=== PATIENT | female | born 1990 | race Caucasian/White ===

== ENCOUNTER 2019-09-08 20:29 | Emergency (ER) | payer OTHER, SELFPAY ==
--- NOTE | 2019-09-08 20:41 | ED.DENTAL ---
HPI - Dental/Oral General Chief complaint: Dental/Oral Stated complaint: TOOTH PAIN Source: patient Mode of arrival: ambulatory Limitations: no limitations History of Present Illness HPI Narrative: 29-year-old female presents with a canker sore located on the the bottom right molar to gum area painful with some no dental pain no submandibular gland swelling no fever chills no shortness of breath. Onset (ago): day(s) Duration: constant Severity: moderate Severity scale (1-10): 8 Relieving factors: NSAIDs Exacerbating factors: chewing Context: history of dental caries Associated symptoms: pain with swallowing Treatment prior to arrival: oral analgesic Related Data Allergies Allergy/AdvReac Type Severity Reaction Status Date / Time No Known Allergies Allergy Mild Unverified 06/25/12 07:53 Review of Systems Review of Systems: All systems reviewed & are unremarkable except as noted in HPI and below PMFSH Past Medical History Medical History Classic migraine SABAS (generalized anxiety disorder) Klippel-Feil syndrome T3-T4 Fusion Anomoly Morbidly obese Nicotine dependence Surgical History Surgical History History of tonsillectomy (~2010) Social History Social History Smoking packs per day: 1 Smoking cigarettes per day: 20.0 Smoking status: Current every day smoker Tobacco type: cigarettes Exam Const: General: no acute distress and alert Orientation/consciousness: patient oriented x3 Limitations: altered mental status HENMT: Head: normal to inspection Other: Canker sore located right lower gum area Neck: Neck: normal visual inspection and no lymphadenopathy Chest: Chest palpation & inspection: normal inspection of the chest Resp: Effort & Inspection: normal respiratory effort Auscultation: clear to auscultation bilaterally Cardio: Rate: regular rate Rhythm: regular rhythm GI: Auscultation: normal bowel sounds Back/Spine/Pelvis: Back: no CVA tenderness Skin: General skin exam: normal color Neuro: General: patient oriented x3, moves all extremities and no meningeal signs Extrem: General: normal to inspection Critical Care Time Critical Care Time Critical Care Time: No Discharge Plan Discharge Clinical Impression: Aphthous ulcer Patient Disposition: Home, Self-Care Condition: Stable Instructions: Antibiotic Form, Canker Sores (ED) Prescriptions: New Orabase (benzocaine) 20 % paste 1 applic MUCOUS MEM QID MDD dispense x one week PRN (Reason: mouth irritation) Qty: 571.2 RF: 0 Follow-up/Referrals: UNKNOWN,DOCTOR [Primary Care Provider] - Stand Alone Forms: Work/School Release IP Time of Disposition: 20:48
[2019-09-08 20:43] VITALS: BP 114/82; RESP 16; TEMP 37; O2SAT 96
== END 2019-09-08 20:57 | disposition home or self-care (01) ==
PROVIDERS: Emergency Provider Emergency Medicine
DX: K12.0 Recurrent oral aphthae (principal)
CPT/HCPCS: 99283

== ENCOUNTER 2021-01-06 11:35 | Outpatient (CLI) | payer OTHER, SELFPAY ==
[2021-01-06 12:49] LABS: SARS-CoV-2 RNA PCR Negative (Negative)
== END 2021-01-06 11:36 | disposition home or self-care (01) ==
LOC: CHSLAB 11:38
PROVIDERS: PCP Family Medicine; Visit Provider Family Medicine
DX: R05 Cough (principal); Z20.822 Contact with and (suspected) exposure to COVID-19
CPT/HCPCS: C9803; U0003; U0005

== ENCOUNTER 2021-01-12 09:44 | Outpatient (CLI) | payer OTHER, SELFPAY ==
--- NOTE | ~2021-01-12 | XR_ITS ---
EXAMINATION: XR chest 2V DATE: 01/12/2021 10:04 INDICATION: Shortness of breath and cough. TECHNIQUE: Frontal and lateral views of the chest were obtained. COMPARISON: Chest 2 views 08/04/2018, CT abdomen and pelvis 09/14/2016 FINDINGS: The chest demonstrates clear lungs without pneumonia, pleural effusion, or pneumothorax. Th e heart size is normal. IMPRESSION: 1. No acute cardiopulmonary disease. Reviewed, dictated and finalized at location A.
[2021-01-12 10:46] LABS: SARS-CoV-2 RNA PCR Positive (Negative)
== END 2021-01-12 09:45 | disposition home or self-care (01) ==
LOC: CHSLAB 09:45
PROVIDERS: PCP Family Medicine; Visit Provider Nurse Practitioner Family
DX: U07.1 COVID-19 (principal); R06.02 Shortness of breath
CPT/HCPCS: 71046; C9803; U0003; U0005

== ENCOUNTER 2021-01-17 14:39 | Outpatient (CLI) | payer OTHER, SELFPAY ==
--- NOTE | ~2021-01-17 | XR_ITS ---
EXAMINATION: XR chest 2V DATE: 01/17/2021 15:13 INDICATION: Shortness of breath and cough. COVID-19 positive. TECHNIQUE: Frontal and lateral views of the chest were obtained. COMPARISON: Chest 2 views 01/12/2021 FINDINGS: The chest demonstrates clear lungs without pneumonia, pleural effusion, or pneumothorax. Th e heart size is normal. IMPRESSION: 1. No acute cardiopulmonary disease. Reviewed, dictated and finalized at location A.
== END 2021-01-17 14:40 | disposition home or self-care (01) ==
LOC: CHSIMG 14:41
PROVIDERS: PCP Nurse Practitioner Family; Visit Provider Nurse Practitioner Family
DX: R06.02 Shortness of breath (principal)
CPT/HCPCS: 71046

== ENCOUNTER 2021-05-04 14:23 | Outpatient (NON) | payer OTHER, SELFPAY | END 2021-05-04 14:24 | disposition home or self-care (01) | LOC: CHSLAB 14:24 | PROVIDERS: Visit Provider Nurse Practitioner Family | DX: R30.0 Dysuria (principal) | CPT/HCPCS: 87086; 87088 ==

== ENCOUNTER 2022-03-28 14:53 | Outpatient (CLI) | payer OTHER, SELFPAY ==
[2022-03-28 15:29] LABS: Hematocrit 39.7 % (35.0-49.0); Hemoglobin 13.6 g/dL (12.0-15.0); Mean Corpuscular HGB Conc 34.3 g/dL (32.0-36.0); Mean Corpuscular Hemoglobin 30.4 pg (27.0-31.0); Mean Corpuscular Volume 88.8 fL (78.0-102.0); Mean Platelet Volume 9.6 fl (9.2-11.8); Platelet Count Result 339 K/mm3 (150-420); Red Blood Count 4.47 M/mm3 (4.20-5.40); Red Cell Distribution Width 11.7 % (11.6-14.4); White Blood Count 10.2 K/mm3 (4.8-10.8)
[2022-03-28 15:51] LABS: Alanine Aminotransferase 22 U/L (14-59); Albumin Level 3.9 g/dL (3.4-5.0); Alkaline Phosphatase 97 U/L (46-116); Anion Gap 9 mmol/L (8-16); Aspartate Amino Transferase 11 U/L (15-37); Bilirubin,Total 0.4 mg/dL (0.00-1.00); Blood Urea Nitrogen 16 mg/dL (7-18); Calcium 8.5 mg/dL (8.5-10.1); Carbon Dioxide 27 mmol/L (21-32); Chloride 104 mmol/L (98-108); Estimated Glomerular Filt Rate 56; Glucose 72 mg/dL (70-99); Osmolality Calculated 290 mOsm/kg (285-295); Potassium 3.9 mmol/L (3.5-5.1); Sodium 140 mmol/L (136-145); Total Protein 7.7 g/dL (6.4-8.2)
[2022-03-28 16:01] LABS: Thyroid Stimulating Hormone Reflex 1.06 u/IU/mL (0.36-3.74)
== END 2022-03-28 14:54 | disposition home or self-care (01) ==
LOC: CHSLAB 14:55
PROVIDERS: PCP Family Medicine; Visit Provider Family Medicine
DX: G47.30 Sleep apnea, unspecified (principal); E11.9 Type 2 diabetes mellitus without complications
CPT/HCPCS: 36415; 80053; 84443; 85027

== ENCOUNTER 2023-08-22 11:41 | Outpatient (CLI) | payer OTHER, SELFPAY ==
[2023-08-22 12:36] LABS: Troponin I < 4.0 ng/L (0.00-60.4)
== END 2023-08-22 11:42 | disposition home or self-care (01) ==
LOC: CHSLAB 11:43
PROVIDERS: PCP Family Medicine; Visit Provider Family Medicine
DX: R07.9 Chest pain, unspecified (principal)
CPT/HCPCS: 36415; 84484

== ENCOUNTER 2024-12-18 05:03 | Emergency (ER) | payer OTHER, SELFPAY ==
--- NOTE | ~2024-12-18 | XR_ITS ---
HISTORY: PAIN WHERE LUMBAR MEETS THORACIC/NO TRAUMA COMPARISON: None. TECHNIQUE: view lumbar spine. FINDINGS: Lumbar vertebral bodies are normally aligned. There are 5 non-rib bearing lumbar vertebral bodies. Disc spaces and vertebral body heights are well maintained. There are no lytic or sclerotic lesions. Paraspinal soft tissues are unremarkable. IMPRESSION: Unremarkable lumbar spine series. Reviewed, dictated and finalized at location A.
[2024-12-18 05:03] VITALS: BP 130/101; PULSE 81; RESP 20; TEMP 36.2; O2SAT 96
--- OUTSIDE RECORDS SUMMARY | 2024-12-18 05:04 | XMS_ITS | Clinical Summary ---
Author Organization [facility] Address [address] [place] [address] Care Team Providers Care Utility Inspector Name Role Phone Unavailable Primary Care Provider Unavailabl e Social History Tobacco Use Types Packs/Day Years Used Date Smoking Tobacco: Never Assessed Comments Unknown Sex and Gender Information Value Date Recorded Sex Assigned at Not on file Legal Sex Female 8:35 PM CDT Gender Identity Not on file Sexual Orientation Not on file Last Filed Vital Signs Vital Sign Reading Time Taken Comments Blood Pressure - - Pulse - - Temperature - - Respiratory Rate - - Oxygen Saturation - - Inhaled Oxygen Concentration - - Weight 81.2 kg (179 lb) 06/04/2018 9:45 AM POLICE SPECIALIST Height 157.5 cm (5' 2) 06/04/2018 9:45 AM POLICE SPECIALIST Body Mass Index 32.74 06/04/2018 9:45 AM POLICE SPECIALIST Plan of Treatment Health Maintenance Due Date Last Done Comments Cervical Cancer Screening Pa p Smear (Age 30 to 64) Every 3 Years 1989 Annual Physical 1992 Hepatitis C 2007 DTaP, Tdap and Td Vaccines ( 1 - Tdap) 2008 Hepatitis B Vaccines (1 of 3 - 19+ 3-dose series) 2008 HPV Vaccines (1 - 3-dose SCD M series) 2016 Cervical Cancer Screening Pa p with HPV Testing (Age 30 to 64) Every 5 Years 2019 Cervical Cancer Screening with HPV 2019 COVID-19 Vaccine (2023-2 5 season) 2024 Meningococcal B Vaccine Aged Out No l onger eligible based on patient's age to complete this topic Meningococcal Vaccine Aged Out No naomi chalo eligible based on patient's age to complete this topic Pneumococcal Vaccine: Pediat rics (0 to 5 Years) and At-Risk Patients (6 to 49 Years) Aged Out No longer eligible b ased on patient's age to complete this topic RSV Immunizations Under 20 Months Aged Out No longer eligible based on patient's age to complete this topic
--- OUTSIDE RECORDS SUMMARY | 2024-12-18 05:04 | XMS_ITS | Encounter Summary ---
Author Organization [facility] Address [address] [place] [id number] Care Team Providers Care Clinical Project Assistant Name Role Phone Unavailable Primary Care Provider Unavailabl e Encounter Details Date Type Department Care Team (Late st Contact Info) Description 10/26/2018 Abstract SFL CONVERSION [address] [place] [address] , Generic Conversion, Social History Tobacco Use Types Packs/Day Years Used Date Smoking Tobacco: Never Assessed Comments Unknown Sex and Gender Information Value Date Recorded Sex Assigned at Not on file Legal Sex Female 8:35 PM CDT Gender Identity Not on file Sexual Orientation Not on file documented as of this encounter Plan of Treatment Not on file documented as of this encounter Visit Diagnoses Not on filedocumented in this encounter
--- NOTE | 2024-12-18 05:09 | ED_ITS ---
HPI - Back Pain/Injury General Chief Complaint: Back Pain/Injury Stated Complaint: Back Pain Time Seen by Provider: 12/18/24 05:09 Source: patient Mode of arrival: ambulatory History of Present Illness HPI Narrative: 34-year-old female with a history of anxiety, panic attack, migraine presents to the ED with acute onset -- low back pain. Pain is located over the lower thoracic and the upper lumbar region. Pain radiates anteriorly. No history of trauma. No motor or sensory loss of the lower extremities. No paresthesias of lower extremities. Pain started yesterday afternoon. No prior episodes back pain or back surgery. -- muscle spasms MD elicited complaint: back pain Onset (ago): day(s) ( One day) Timing: constant Severity: severe Similar Symptoms Previously: No Quality: aching and spasming Location: lumbar spine and thoracic spine Radiation: other ( radiates anteriorly in a girdle like fashion.) Exacerbating factors: movement Relieving factors: immobilization Work related injury: No Related Data Home Medications ?Medication ?Instructions ?Recorded ?Confirmed ?Last Taken ?Type etonogestrel 68 mg subdermal 1 implant subdermal ONCE 08/21/11/03/24 Unknown History implant (Nexplanon) Allergies Allergy/AdvReac Type Severity Reaction Status Date / Time acetaminophen (From Vicodin) Allergy Mild Nausea and Verified 12/18/24 05:11 Vomiting hydrocodone (From Vicodin) Allergy Mild Nausea and Verified 12/18/24 05:11 Vomiting Review of Systems Review of Systems: All systems reviewed & are unremarkable except as noted in HPI and below Constitutional: Constitutional: Reports as per HPI and Reports no additional constitutional complaints Eyes: Eyes: Reports as per HPI and Reports no additional eye complaints ENT: Reports system reviewed and no additional complaints, except as documented and Reports as per HPI Cardiovascular: Cardiovascular: Reports as per HPI and Reports no additional cardiovascular complaints Respiratory: Respiratory: Reports as per HPI and Reports no additional respiratory complaints Gastrointestinal: Gastrointestinal: Reports as per HPI and Reports no additional gastrointestinal complaints Genitourinary: Genitourinary: Reports no additional female genitourinary complaints and Reports as per HPI Musculoskeletal: Musculoskeletal: Reports back pain Comments: Lower thoracic and upper lumbar spine. Integumentary/Breasts: Skin/Breast: Reports system reviewed and no additional complaints, except as docu and Reports as per HPI Neurologic: Reports system reviewed and no additional complaints, except as documented and Reports as per HPI Psychiatric: Psychiatric: Reports no additional psychiatric complaints and Reports as per HPI Endocrine: Endocrine: Reports no additional endocrine complaints and Reports as per HPI Hematologic/Lymphatic: Hematologic/Lymphatic: Reports no additional hematologic/lymphatic complaints and Reports as per HPI Allergic/Immunologic: Allergic/Immunologic: Reports no additional allergic/immunologic complaints and Reports as per HPI [facility] Past Medical History Medical History 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 Nicotine dependence Classic migraine Morbidly obese Surgical History Surgical History History of tonsillectomy (~2010) Social History Social History Smoking packs per day: 1 Smoking cigarettes per day: 20.0 Smoking status: Current every day smoker Tobacco type: e-cigarettes/vaping Additional smoking assessment comments: pt states she vapes now Alcohol intake: current Alcohol use details: 3 times weekly Substance use: never Substance use type: does not use Lack of Transportation: No Lack of Food: Never True Current Housing: I Have Housing Concerned About Future Housing: No Difficulty Paying Gas/Electric Bills: No Difficulty Paying for Meds: No Currently Unemployed: No Education: High School Diploma/GED Difficulty w/ Childcare or Family Care: No Exam Const: Orientation/consciousness: patient oriented x3 Limitations: no limitations HENMT: Head: normal to inspection Ears: external ears normal Face/Nose/Sinus: Normal external nose present Face and sinus: normal facial exam Mouth: Yes Normal oral and palatal mucosa present Throat: posterior oropharynx normal Eyes: Conjunctivae: conjunctivae normal Pupils: Equal, round and reactive pupils present EOM: EOMs intact bilaterally Neck: Neck: normal visual inspection, no lymphadenopathy and no meningeal signs Chest: Chest palpation & inspection: normal inspection of the chest Resp: Effort & Inspection: normal respiratory effort Auscultation: clear to auscultation bilaterally Cardio: Rate: regular rate Rhythm: regular rhythm GI: Auscultation: normal bowel sounds Other: No tenderness/rigidity / rebound. : General: Yes no CVA tenderness Back/Spine/Pelvis: Back: no CVA tenderness Other: No spinal tenderness. Tenderness in thoracolumbar region. straight leg raising test negative. Skin: General skin exam: normal color Rashes: no rashes Wounds: no wounds Neuro: General: patient oriented x3, moves all extremities, no meningeal signs, no focal motor deficits and CN's II-XI intact bilaterally Other: No motor or sensory loss of the lower extremities Extrem: General: normal to inspection and no clubbing, cyanosis or edema Psych: Mental Status: mental status grossly normal Affect: normal affect Attitude: cooperative Course Course Emergency Course: pain in the lumbosacral region-- no history of trauma. No motor or sensory loss in the lower extremities. No bladder or bowel involvement. Straight leg raising test is negative. X-ray did not show any acute findings. The patient received Toradol and Flexeril with improvement of symptoms. Will discharge the patient home on diclofenac and Flexeril. Vital Signs Vital signs: Vital Signs Temperature 36.2 C L 12/18/24 05:03 Pulse Rate 81 12/18/24 05:03 Respiratory Rate 20 12/18/24 05:03 Blood Pressure 130/101 H 12/18/24 05:03 Pulse Oximetry 96 12/18/24 05:03 Oxygen Delivery Room Air 12/18/24 05:03 Temperature 36.2 C L 12/18/24 05:03 Pulse Rate 81 12/18/24 05:03 Respiratory Rate 20 12/18/24 05:03 Blood Pressure 130/101 H 12/18/24 05:03 Pulse Oximetry 96 12/18/24 05:03 Oxygen Delivery Room Air 12/18/24 05:03 MDM - Back Pain/Injury MDM Narrative Medical decision making narrative: Acute low back pain Differential Diagnosis Differential diagnosis: Likely lumbar radiculopathy Medical Records Attestation: I reviewed the patient's medical records. Lab Data Labs: Lab Results 12/18/24 Range/Units 05:25 Urine Test Negative Imaging Data Attestation: I personally reviewed and interpreted this imaging study as follows: My impression: x-ray of the lumbosacral region did not show any acute Finding. Discharge Plan Discharge Clinical Impression: Acute low back pain Patient Disposition: Home Condition: Stable Instructions: Antibiotic Form, Acute Low Back Pain (ED) Patient Language: Swedish Prescriptions: New diclofenac sodium 50 mg tablet,delayed release (DR/EC) 50 mg PO Q12H PRN (Reason: pain) Qty: 20 0RF cyclobenzaprine 5 mg tablet 5 mg PO BID PRN (Reason: muscle spasm) Qty: 14 0RF No Action Nexplanon 68 mg implant 1 implant subdermal ONCE Rx Instructions: as a single dose rizatriptan [Maxalt] 10 mg tablet See Rx Instructions PO .COMPLEX Qty: 14 1RF Rx Instructions: take 1 tab at onset of headache; if no relief may repeat 1 tab after at least 2 hrs; max = 3 tabs/24 hr oral alprazolam 1 mg tablet 1 mg PO BID PRN (Reason: anxiety) Qty: 20 0RF sertraline 100 mg tablet See Rx Instructions .ROUTE .COMPLEX Qty: 90 0RF Dose Instruction: TAKE ONE TABLET BY MOUTH DAILY Rx Instructions: TAKE ONE TABLET BY MOUTH DAILY Follow-up/Referrals: Guero Lopez DO [Primary Care Provider] - Time of Disposition: 06:13
--- NOTE | 2024-12-18 05:14 | PC.NURSE ---
DR LIEBERMAN AT THE BEDSIDE
[2024-12-18] MEDS: CYCLOBENZAPRINE HCL 5 MG TABLET PO (05:29)
[2024-12-18] MEDS: KETOROLAC 30 MG/ML VIAL (*BKC) IM (05:29)
[2024-12-18 05:31] LABS: Pregnancy On Board Control Positive
--- NOTE | 2024-12-18 05:33 | PC.NURSE ---
PATIENT SITTING ON THE SIDE OF THE BED. UNABLE TO LAY BACK AT THIS TIME. MEDICATED PER JUL FOR PAIN.
--- NOTE | 2024-12-18 05:57 | PC.NURSE ---
PATIENT TAKEN TO XRAY VIA WHEEL CHAIR
--- NOTE | 2024-12-18 06:02 | PC.NURSE ---
PATIENT HAS RETURNED TO ROOM VIA WHEEL CHAIR. PATIENT IS ABLE TO MOVE BETTER NOW COMPARED TO ARRIVAL
--- NOTE | 2024-12-18 06:07 | PC.NURSE ---
CHRISTINE LIEBERMAN AT THE BEDSIDE
--- OUTSIDE RECORDS SUMMARY | 2024-12-18 06:15 | XMS_ITS | Clinical Summary ---
Author Organization [facility] Address [address] [place] [id number] Care Team Providers Care Bunch Maker Hand Name Role Phone Unavailable Primary Care Provider [...] 81.2 kg (179 lb) 06/04/2018 9:45 AM CARDIOVASCULAR PHYSICIAN ASSISTANT Height 157.5 cm (5' 2) 06/04/2018 9:45 AM CARDIOVASCULAR PHYSICIAN ASSISTANT Body Mass Index 32.74 06/04/2018 9:45 AM CARDIOVASCULAR PHYSICIAN ASSISTANT Plan of Treatment Health Maintenance Due Date [...]
--- OUTSIDE RECORDS SUMMARY | 2024-12-18 06:15 | XMS_ITS | Encounter Summary ---
Author Organization [facility] Address [address] [place] [id number] Care Team Providers Care Barn Hand Name Role Phone Unavailable Primary Care Provider Unavailabl e Encounter Details Date Type Department Care Team (Late st Contact Info) Description 10/26/2018 Abstract SFL CONVERSION [address] [place] [address] , Generic Conversion, Social History Tobacco Use [...]
[2024-12-18 06:23] VITALS: BP 132/92; PULSE 71; RESP 18; O2SAT 98
== END 2024-12-18 06:23 | disposition home or self-care (01) ==
LOC: CHSED 06:14
PROVIDERS: Emergency Provider Internal Medicine Critical Care Medicine; PCP Family Medicine
DX: M54.50 Low back pain, unspecified (principal); F17.290 Nicotine dependence, other tobacco product, uncomplicated
CPT/HCPCS: 72100; 81025; 96372; 99283; A9270; J1885

== ENCOUNTER 2025-02-18 13:00 | Emergency (ER) | payer OTHER, SELFPAY ==
[2025-02-18 13:01] VITALS: BP 137/95; PULSE 75; RESP 18; TEMP 36.1; O2SAT 99
--- NOTE | 2025-02-18 13:03 | ED_ITS ---
HPI - Nausea/Vomiting/Diarrhea General Chief complaint: Nausea/Vomiting/Diarrhea Stated complaint: nausea, vomiting Time Seen by Provider: 02/18/25 13:01 Source: patient and family Mode of arrival: ambulatory Limitations: no limitations History of Present Illness HPI Narrative: Patient is a 34-year-old female with a headache and nausea vomiting today. She has recurrent headaches in the past but this one is slightly different and a little worse than normal. MD elicited complaint: nausea, vomiting and other (Headache) Pertinent past history: other (Migraines/headaches) Onset (ago): day(s) (1) Description of vomiting: watery Description of diarrhea: other (None) Associated nausea: Yes Associated abdominal pain: No Location of pain: other (Left frontal retro-orbital region) Radiation: diffuse Pain consistency: constant Severity: severe Pain scale (0-10): 8 Quality: aching, sharp and constant Exacerbating factors: other (Sound and light) Relieving factors: none Context: other (Patient has headache with nausea and vomiting and sensitivity to sound and light for the past day) Associated symptoms: nausea/vomiting Treatment prior to arrival: analgesics and NSAIDs Related Data Home Medications ?Medication ?Instructions ?Recorded ?Confirmed ?Last Taken ?Type etonogestrel 68 mg subdermal 1 implant subdermal ONCE 08/22/23 12/29/24 Unknown History implant (Nexplanon) Allergies Allergy/AdvReac Type Severity Reaction Status Date / Time acetaminophen (From Vicodin) Allergy Mild Nausea and Verified 02/18/25 13:01 Vomiting hydrocodone (From Vicodin) Allergy Mild Nausea and Verified 02/18/25 13:01 Vomiting Review of Systems 2 Review of Systems: All systems reviewed & are unremarkable except as noted in HPI and below Constitutional: Constitutional: Reports no additional constitutional complaints Eyes: Eyes: Reports no additional eye complaints ENT: Reports system reviewed and no additional complaints, except as documented Cardiovascular: Cardiovascular: Reports no additional cardiovascular complaints Respiratory: Respiratory: Reports no additional respiratory complaints Gastrointestinal: Gastrointestinal: Reports no additional gastrointestinal complaints Genitourinary: Genitourinary: Reports no additional female genitourinary complaints Musculoskeletal: Musculoskeletal: Reports no additional musculoskeletal complaints Integumentary/Breasts: Skin/Breast: Reports system reviewed and no additional complaints, except as docu Neurologic: Reports system reviewed and no additional complaints, except as documented Psychiatric: Psychiatric: Reports no additional psychiatric complaints Endocrine: Endocrine: Reports no additional endocrine complaints Hematologic/Lymphatic: Hematologic/Lymphatic: Reports no additional hematologic/lymphatic complaints Allergic/Immunologic: Allergic/Immunologic: Reports no additional allergic/immunologic complaints [facility] Past Medical History Medical History 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 Nicotine dependence Classic migraine Morbidly obese Surgical History Surgical History History of tonsillectomy (~2010) Social History Social History Smoking packs per day: 1 Smoking cigarettes per day: 20.0 Smoking status: Current every day smoker Tobacco type: e-cigarettes/vaping Additional smoking assessment comments: pt states she vapes now Alcohol intake: current Alcohol use details: 3 times weekly Substance use: never Substance use type: does not use Lack of Transportation: No Lack of Food: Never True Current Housing: I Have Housing Concerned About Future Housing: No Difficulty Paying Gas/Electric Bills: No Difficulty Paying for Meds: No Currently Unemployed: No Education: High School Diploma/GED Difficulty w/ Childcare or Family Care: No Exam 2 Const: General: healthy appearing Nutritional Appearance: well nourished Orientation/consciousness: patient oriented x3 Limitations: no limitations HENMT: Head: normal to inspection Ears: external ears normal F janette/Nose/Sinus: Normal external nose present Eyes: Conjunctivae: conjunctivae normal Cornea: corneas normal Pupils: E qual, round and reactive pupils present Neck: Neck: normal visual inspection Chest: Chest palpation & inspection: normal inspection of the chest Resp: Effort & Inspection: normal respiratory effort and not labored A uscultation: clear to auscultation bilaterally and no crackles Cardio: Rate: regular rate Rhythm: regular rhythm Heart sounds: no murmurs GI: Inspection: non-distended GI Palp: Yes Soft to palpation and No Tenderness to palpation present (GI) Auscultation: normal bowel sounds : General: Yes bladder normal to palpation Back/Spine/Pelvis: Back: no CVA tenderness Skin: General skin exam: normal color Rashes: no rashes Wounds: no wounds Neuro: General: patient oriented x3, moves all extremities and no meningeal signs Cranial nerves: Yes Nystagmus not present Speech: normal speech G ait exam (Neuro): Normal gait present Other: Fast exam negative, NIH is 0, GCS is 15 Extrem: General: normal to inspection Psych: Mental Status: mental status grossly normal Affect: normal affect Attitude: cooperative Course Vital Signs Vital signs: Vital Signs Temperature 36.1 C L 02/18/25 13:01 Pulse Rate 75 02/18/25 13:01 Respiratory Rate 18 02/18/25 13:01 Blood Pressure 137/95 H 02/18/25 13:01 Pulse Oximetry 99 02/18/25 13:01 Oxygen Delivery Room Air 02/18/25 13:01 Temperature 36.9 C 02/18/25 16:24 Pulse Rate 71 02/18/25 16:24 Respiratory Rate 20 02/18/25 16:24 Blood Pressure 121/86 02/18/25 16:24 Pulse Oximetry 97 02/18/25 16:24 Oxygen Delivery Room Air 02/18/25 16:24 MDM - Nausea/Vomiting/Diarrhea MDM Narrative Medical decision making narrative: Patient is a 34-year-old female with a headache and nausea vomiting for the past day. Treat with triple therapy to include Reglan Benadryl and Toradol. IV fluid. Labs. UA. Lab Data Attestation: I reviewed the patient's lab results. 02/18/25 14:42 02/18/25 14:42 Labs: Lab Results 02/18/25 02/18/25 Range/Units 13:05 14:42 WBC 12.1 H (4.8-10.8) K/mm3 RBC 4.80 (4.20-5.40) M/mm3 Hgb 14.5 (12.0-15.0) g/dL Hct 42.4 (35.0-49.0) % MCV 88.3 (78.0-102.0) fL MCH 30.2 (27.0-31.0) pg MCHC 34.2 (32-36) g/dL RDW 12.0 (11.6-14.4) % Plt Count 316 (150-420) K/mm3 MPV 9.6 (9.2-11.8) fl Immature Gran % (Auto) 0.3 H (0.0-0.0) % Neut % (Auto) 85.1 H (50.0-70.0) % Lymph % (Auto) 11.8 L (18.0-42.0) % [place]comb % (Auto) 2.5 (2.0-11.0) % Eos % (Auto) 0.1 L (1.0-6.0) % Baso % (Auto) 0.2 (0.0-1.0) % Lymph # (Auto) 1.43 (1.10-4.50) K/mm3 Lipscomb # (Auto) 0.30 (0.10-0.90) K/mm3 Eos # (Auto) 0.01 L (0.02-0.50) K/mm3 Baso # (Auto) 0.03 (0.00-0.10) K/mm3 Abs Immat Gran (auto) 0.04 H (0.00-0.00) K/mm3 Absolute Neuts (auto) 10.26 H (1.70-7.20) K/mm3 Absolute Nucleated RBC 0.00 (0.00-0.00) K/mm3 Nucleated RBC % 0.0 (0-0.0) % Sodium 142 (137-145) mmol/L Potassium 4.0 (3.4-5.0) mmol/L Chloride 107 (98-107) mmol/L Carbon Dioxide 24 (22-30) mmol/L Anion Gap 11 (4-12) mmol/L BUN 7 (7-17) mg/dL Creatinine 0.68 L (0.7-1.0) mg/dL Estim Creat Clear Calc 98 ml/min Estimated GFR > 60 (59 - ) Glucose 100 (65-110) mg/dL Calculated Osmolality 292 (285-295) mOsm/kg Calcium 9.2 (8.4-10.2) mg/dL Total Bilirubin 0.9 (0.2-1.3) mg/dL AST 22 (14-36) U/L ALT 18 (6-35) U/L Alkaline Phosphatase 90 (38-126) U/L Total Protein 10.2 H (6.3-8.2) g/dL Albumin 4.6 (3.5-5.1) g/dL Urine Color Yellow (Yellow) Urine Appearance Clear (Clear) Urine pH 7.0 (5.0-8.0) Ur Specific [place] 1.020 (1.010-1.020) Urine Protein 2+ H (Negative) Urine Glucose (UA) Negative (Negative) Urine Ketones 2+ H (Negative) Ur Blood (Man) 1+ H (Negative) Urine Nitrate Negative (Negative) Urine Bilirubin Negative (Negative) Urine Urobilinogen 0.2 (0.2-1.0) mg/dL Leukocyte Esterase Rfl 1+ H (Negative) SULAIMAN/UL Urine RBC 0-2 (0-2) /hpf Urine WBC 4-6 H (0-3) /hpf Ur Squamous Epith Cells Few (Few) /hpf Urine Bacteria Trace (None) /hpf Urine Test Negative Influenza A (RT-PCR) Negative (Negative) Influenza B (RT-PCR) Negative (Negative) RSV (RT-PCR) Negative (Negative) SARS-CoV-2 RNA (RT-PCR) Negative (Negative) Discharge Plan Discharge Clinical Impression: Acute UTI Cephalgia Qualifiers: Headache type: other headache syndrome Qualified Code(s): G44.89 - Other headache syndrome Nausea & vomiting Qualifiers: Vomiting type: unspecified Qualified Code(s): R11.2 - Nausea with vomiting, unspecified Patient Disposition: Home Condition: Stable Instructions: Antibiotic Form, Urinary Tract Infection in Women (DC), Acute Headache (DC) Patient Language: Kenyan Prescriptions: New ciprofloxacin HCl [Cipro] 500 mg tablet 500 mg PO BID 7 Days Qty: 14 0RF ondansetron 4 mg tablet,disintegrating 4 mg translingual Q8H PRN (Reason: nausea and vomiting) Qty: 20 0RF No Action Nexplanon 68 mg implant 1 implant subdermal ONCE Rx Instructions: as a single dose rizatriptan [Maxalt] 10 mg tablet See Rx Instructions PO .COMPLEX Qty: 14 1RF Rx Instructions: take 1 tab at onset of headache; if no relief may repeat 1 tab after at least 2 hrs; max = 3 tabs/24 hr oral sertraline 100 mg tablet See Rx Instructions .ROUTE .COMPLEX Qty: 90 0RF Dose Instruction: TAKE ONE TABLET BY MOUTH DAILY Rx Instructions: TAKE ONE TABLET BY MOUTH DAILY alprazolam 1 mg tablet 1 mg PO BID PRN (Reason: anxiety) Qty: 20 0RF Follow-up/Referrals: Guero Lopez DO [Primary Care Provider, [facility]] Time of Disposition: 15:54
--- OUTSIDE RECORDS SUMMARY | 2025-02-18 13:08 | XMS_ITS | Clinical Summary ---
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
--- OUTSIDE RECORDS SUMMARY | 2025-02-18 13:08 | XMS_ITS | Encounter Summary ---
Author Organization [facility] Address [address] [place] [id number] Care Team Providers Care Cook Seafood Name Role Phone Unavailable Primary Care Provider Unavailabl e Encounter Details Date Type Department Care Team (Late st Contact Info) Description 10/26/2018 Abstract [facility]FL CONVERSION [address] [place] [address] , Generic Conversion, Social History Tobacco Use [...]
[2025-02-18] MEDS: ONDANSETRON HCL ODT 4 MG TABLET PO (13:26)
--- OUTSIDE RECORDS SUMMARY | 2025-02-18 13:33 | XMS_ITS | Encounter Summary ---
Author Organization [facility] Address [address] [place] [id number] Care Team Providers Care Station Mechanic Name Role Phone Unavailable Primary Care Provider Unavailabl e Encounter Details Date Type Department Care Team (Late st Contact Info) Description 10/26/2018 Abstract SFL CONVERSION [address] [place] [address] , Generic Conversion, Social History Tobacco Use [...]
--- OUTSIDE RECORDS SUMMARY | 2025-02-18 13:33 | XMS_ITS | Clinical Summary ---
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
[2025-02-18 13:36] LABS: Add Urine Microscopic? YES; Appearance Urine Clear (Clear); Glucose Urine UA Negative (Negative); Leukocyte Esterase Ur 1+ LEU/UL (Negative); Nitrate Urine Negative (Negative); Specific Grav Ur 1.020 (1.010-1.020)
[2025-02-18 13:45] LABS: Pregnancy On Board Control Positive
[2025-02-18 14:10] LABS: Influenza A QL RT-PCR Negative (Negative); Influenza B QL RT-PCR Negative (Negative); RSV RNA, RT-PCR Negative (Negative); SARS-CoV-2 RNA PCR Negative (Negative)
[2025-02-18] MEDS: SODIUM CHLORIDE 0.9% IV 1,000 ML 999 ML IV CONT (14:42)
[2025-02-18 14:45] LABS: Hematocrit 42.4 % (35.0-49.0); Hemoglobin 14.5 g/dL (12.0-15.0); Immature Granulocyte Percent A 0.3 % (0.0-0.0); Lymphocytes Absolute Auto 1.43 K/mm3 (1.10-4.50); Mean Corpuscular HGB Conc 34.2 g/dL (32-36); Mean Corpuscular Hemoglobin 30.2 pg (27.0-31.0); Mean Corpuscular Volume 88.3 fL (78.0-102.0); Nucleated Red Blood Cells Absolute Auto 0.00 K/mm3 (0.00-0.00); Nucleated Red Blood Cells Perc 0.0 % (0-0.0); Platelet Count Result 316 K/mm3 (150-420); Red Blood Count 4.80 M/mm3 (4.20-5.40); White Blood Count 12.1 K/mm3 (4.8-10.8)
[2025-02-18] MEDS: METOCLOPRAMIDE HCL INJ 10 MG/2 ML VIAL IV PUSH (14:45)
[2025-02-18] MEDS: KETOROLAC 30 MG/ML VIAL (*BKC) IV PUSH (14:52)
[2025-02-18 14:56] LABS: Alanine Aminotransferase 18 U/L (6-35); Albumin Level 4.6 g/dL (3.5-5.1); Alkaline Phosphatase 90 U/L (38-126); Anion Gap 11 mmol/L (4-12); Aspartate Amino Transferase 22 U/L (14-36); Bilirubin,Total 0.9 mg/dL (0.2-1.3); Blood Urea Nitrogen 7 mg/dL (7-17); Calcium 9.2 mg/dL (8.4-10.2); Carbon Dioxide 24 mmol/L (22-30); Chloride 107 mmol/L (98-107); Estimated CRCL calculation 98 ml/min; Estimated Glomerular Filt Rate > 60; Glucose 100 mg/dL (65-110); Osmolality Calculated 292 mOsm/kg (285-295); Potassium 4.0 mmol/L (3.4-5.0); Sodium 142 mmol/L (137-145); Total Protein 10.2 g/dL (6.3-8.2)
[2025-02-18 16:24] VITALS: BP 121/86; PULSE 71; RESP 20; TEMP 36.9; O2SAT 97
--- NOTE | 2025-02-20 13:47 | PC.NURSE ---
FINAL URINE CULTURE REPORT; MIXED UROGENITAL LENI, NO FURTHER ACTION OR TREATMENT NEEDED PER ERP.
== END 2025-02-18 16:25 | disposition home or self-care (01) ==
PROVIDERS: Emergency Provider Emergency Medicine; PCP Family Medicine
DX: N39.0 Urinary tract infection, site not specified (principal); G44.89 Other headache syndrome; R11.2 Nausea with vomiting, unspecified; F17.210 Nicotine dependence, cigarettes, uncomplicated; Z20.822 Contact with and (suspected) exposure to COVID-19
CPT/HCPCS: 36415; 80053; 81001; 81025; 85025; 87086; 87637; 96361; 96374; 96375; 99284; A9270; J1200; J1885; J2765; J7030